=== PATIENT | female | born 1955 | race Caucasian/White ===

== ENCOUNTER 2021-12-26 17:48 | Emergency (ER) | payer MEDICARE, BC, SELFPAY ==
[2021-12-26 17:58] VITALS: BP 123/85; PULSE 80; RESP 20; TEMP 36.2; O2SAT 95; BMI 21.5
--- NOTE | 2021-12-26 19:04 | ED_ITS ---
HPI - Wound/Laceration General Time Seen by Provider: 19:03 Date Seen: 12/26/21 Chief Complaint: Laceration/Wound Stated Complaint: TRIPPED/FELL,INJURING CHIN & JAW Time Seen by Provider: 12/26/21 18:00 Source: patient History of Present Illness HPI narrative: 66-year-old female presents to the emergency room with a chin laceration. She was playing pickleball and chasing after a ball when she fell forward hitting her chin on the ground. She reports that her jaw is hurting a little bit on the left side/TMJ. She has normal motion in her jaw in her teeth are in good alignment. She did not chip her teeth or injure her tongue or mouth. She has no other injury. She has no other concerns. Last tetanus was about 5 years ago. Related Data Home Medications Medication Instructions Recorded Confirmed doxycycline monohydrate 100 mg mg 12/26/21 tablet Allergies Allergy/AdvReac Type Severity Reaction Status Date / Time No Known Drug Allergies Allergy Verified 12/26/21 18:02 Review of Systems Narrative: No recent illness. No other injury. [facility] Medical History (Updated 12/26/21 @ 19:06 by Emily Samayoa RN) No significant past medical history Surgical History (Updated 12/26/21 @ 19:06 by Emily Samayoa RN) History of delivery Social History Smoking Status: Never smoker Do you use any of these nicotine containing products: None Second hand tobacco smoke exposure: No How often do you have a drink containing alcohol: 2-4 times a month How many standard drinks containing alcohol do you have on a typical day: 1 or 2 How often do you have six or more drinks on one occasion: Never AUDIT-C Alcohol total score: 2 Non-prescribed substance use: denies use service: No Exam Narrative: Exam Narrative: She is alert and appears in no distress she gives her own history. Head is w ithout trauma except on the mentum of her chin where she has a 2 cm long laceration horizontally oriented just underneath the mandible. The wound is gaping wide about 4 mm and has some tension on it. The epidermal skin is also somewhat abraded around the wound. Palpation over her TMJ is nontender bilaterally. She opens and closes her mouth well. She has some discomfort On the left with maximum opening of her jaw. neck is supple without pain or te Const: Vital Signs, click to edit/add: Vital Signs - 24 hr 12/26/21 17:58 Temperature 97.2 F L Pulse Rate [Right Pulse Oximeter] 80 Respiratory Rate 20 Blood Pressure [Ri ght Upper Arm] 123/85 Pulse Oximetry 95 Documenting provider has reviewed patient's vital signs: yes Course Vital Signs Vital signs: Initial Vital Signs Temperature 97.2 F L 12/26/21 17:58 Temperature Source Temporal Artery Scan 12/26/21 17:58 Pulse Rate 80 12/26/21 17:58 Respiratory Rate 20 12/26/21 17:58 Blood Pressure 123/85 12/26/21 17:58 Blood Pressure Mean 97 12/26/21 17:58 Blood Pressure Position Sitting 12/26/21 17:58 Pulse Oximetry 95 12/26/21 17:58 Oxygen Delivery Method 12/26/21 17:58 Vital Signs Temperature 97.2 F L 12/26/21 17:58 Pulse Rate 80 12/26/21 17:58 Respiratory Rate 20 12/26/21 17:58 Blood Pressure 123/85 12/26/21 17:58 Pulse Oximetry 95 12/26/21 17:58 Temperature 97.2 F L 12/26/21 17:58 Pulse Rate 80 12/26/21 17:58 Respiratory Rate 20 12/26/21 17:58 Blood Pressure 123/85 12/26/21 17:58 Pulse Oximetry 95 12/26/21 17:58 MDM - Wound/Laceration Differential Diagnosis Differential diagnosis: Likely laceration Discharge Plan Discharge Clinical Impression: Laceration Patient Disposition: Home, Self-Care Additional Instructions: Keep the sutures in for 6 days. During that time you may take a shower and get clean water and soap on your wound. Chest gently pat dry and cover with a Band-Aid afterwards. Watch for signs of infection, redness, swelling, drainage. if you see evidence of infection see your doctor to evaluate that. After your sutures are out you can resume normal activities. I recommend that for the rest of the summer you keep this covered with sunscreen when your out of doors. Your jaw injury should improve over the next few days. I do not think it is fractured based on your normal motion an normal bite and mild amount of discomfort. If it is not getting better in the next few days you should contact your dentist about who should further evaluate your jaw injury. In the meantime avoid eating chewy foods. Activity Level: No Restrictions Prescriptions: No Action doxycycline monohydrate 100 mg tablet 0RF Label Comments: TAKE 100 MG TWICE A DAY X 2 WEEKS, THEN 100MG DAILY X 2 WEEKS Stand Alone Forms: [employer] Info Instructions
== END 2021-12-26 19:17 | disposition home or self-care (01) ==
LOC: ED 19:13
PROVIDERS: Emergency Provider Family Medicine; PCP Family Medicine
DX: S01.81XA Laceration without foreign body of other part of head, initial encounter (principal); W18.09XA Striking against other object with subsequent fall, initial encounter
CPT/HCPCS: 12011; 99282; 99283

== ENCOUNTER 2022-06-07 12:37 | Outpatient (RCR) | payer MEDICARE, BC, SELFPAY | END 2022-09-15 10:53 | disposition home or self-care (01) | PROVIDERS: PCP Family Medicine; Visit Provider Physician Assistant | DX: M54.9 Dorsalgia, unspecified (principal); M54.6 Pain in thoracic spine; Z51.89 Encounter for other specified aftercare | CPT/HCPCS: 97110; 97161 ==

== ENCOUNTER 2022-08-09 08:58 | Outpatient (CLI) | payer MEDICARE, BC, SELFPAY ==
--- NOTE | 2022-08-09 09:15 | CRLHL7_ITS ---
For Patients: As a result of the Cures Act, medical imaging exams and procedure reports are released immediately into your electronic medical record. You may view this report before your referring provider. If you have questions, please contact your health care provider. BILATERAL SCREENING MAMMOGRAM WITH COMPUTER-AIDED DETECTION AND TOMOSYNTHESIS TECHNIQUE: CC and MLO views were obtained. These mammographic images have been obtained using full-field digital technique. These mammographic images were interpreted with the benefit of computer-aided detection. Breast tomosynthesis was used in this interpretation. COMPARISON FILM: 05/11/21, 04/19/20, 04/14/19. FINDINGS: There are scattered areas of fibroglandular density. IMPRESSION: There is no radiographic evidence for malignancy. ASSESSMENT: BI-RADS Category 1: Negative RECOMMENDATION: Routine screening mammogram in 1 year. A lay language report of this examination will be provided to the patient. ESAU FISHER M.D. Diagnostic Radiologist [email or web address] VINH/dede Transcribed: 08/09/2022, 2:[address]/Dictated by: Esau Fisher MD @ 08/09/2022 10:03:00 AM (Electronically Signed)
== END 2022-08-09 08:59 | disposition home or self-care (01) ==
LOC: MAMMO 09:00
PROVIDERS: PCP Family Medicine; Visit Provider Obstetrics & Gynecology
DX: Z12.31 Encounter for screening mammogram for malignant neoplasm of breast (principal)
CPT/HCPCS: 77063; 77067

== ENCOUNTER 2022-10-02 16:30 | Outpatient (RCR) | payer MEDICARE, BC, SELFPAY | END 2022-10-16 13:17 | disposition home or self-care (01) | PROVIDERS: PCP Family Medicine; Visit Provider Family Medicine | DX: M79.18 Myalgia, other site (principal); Z51.89 Encounter for other specified aftercare | CPT/HCPCS: 97110; 97161 ==